=== PATIENT | female | born 1970 | race American Indian/Alaskan Native ===

== ENCOUNTER 2017-12-02 17:34 | Emergency (ER) | payer MEDICAID ==
[2017-12-02 17:41] VITALS: BP 151/89
[2017-12-02 18:14] LABS: Basophils % (Auto) 0.7 % (0.0-1.8); Eosinophils # (Auto) 0.1 K/mm3 (0.0-0.4); Eosinophils % (Auto) 1.9 % (0.0-4.3); Hematocrit 41.2 % (30.3-42.9); Hemoglobin 13.5 gm/dl (10.1-14.3); Lymphocytes # (Auto) 2.6 K/mm3 (1.2-5.4); Lymphocytes % (Auto) 51.1 % (13.4-35.0); Mean Corpuscular HGB Conc 33 % (30-34); Mean Corpuscular Hemoglobin 27 pg (28-32); Mean Corpuscular Volume 83 fl (79-97); Monocytes # (Auto) 0.4 K/mm3 (0.0-0.8); Monocytes % (Auto) 8.1 % (0.0-7.3); Platelet Count 254 K/mm3 (140-440); Red Blood Count 4.97 M/mm3 (3.65-5.03); Red Cell Distribution Width 13.8 % (13.2-15.2)
[2017-12-02 18:23] LABS: INR 0.87 (0.87-1.13)
[2017-12-02 18:24] LABS: Partial Thromboplastin Time 32.2 Sec. (24.2-36.6)
[2017-12-02 18:29] LABS: BUN/Creatinine Ratio 17; Blood Urea Nitrogen 12 mg/dL (7-17); Calcium 9.1 mg/dL (8.4-10.2); Hemolysis Index 4
--- NOTE | 2017-12-02 18:51 | Cat Scan Report ---
FINAL REPORT PROCEDURE: CT HEAD/BRAIN WO CON TECHNIQUE: Computerized tomography of the head was performed without contrast material. HISTORY: NUMBNESS LEFT ARM COMPARISON: No prior studies are available for comparison. FINDINGS: Skull and scalp: Normal. Paranasal sinuses: Normal. Ventricles and subarachnoid spaces: Normal. Cerebrum: No evidence of hemorrhage, acute infarction or mass . Cerebellum and brainstem: No evidence of hemorrhage, acute infarction or mass. Vasculature: Normal. Comments: None. IMPRESSION: Normal Examination
[2017-12-02] MEDS ORDERED: ULTRAM PO ONE (21:02)
--- NOTE | 2017-12-02 21:11 | Emergency Department Report ---
ED Neuro Deficit HPI - General Chief Complaint: Neuro Symptoms/Deficit Stated Complaint: LEFT ARM PAIN Time Seen by Provider: 12/02/17 20:49 Source: patient Mode of arrival: Ambulatory Limitations: No Limitations - History of Present Illness Initial Comments: 47-year-old female no significant past medical history presents to to the hospital complaining of left arm numbness that started hours prior to arrival. Patient complains of left sided neck pain and numbness and paresthesias extending shoulder to hand. Symptoms are constant. Initially rated 6/10 in intensity. Patient took one of her diclofenac 75 mg tablets the pain decreased to 3-4/10 in intensity. Intermittent shooting component to pain. Patient denies weakness or other deficits. Patient denies any recent trauma or injury - Related Data Home Medications: Home Medications Medication Instructions Recorded Confirmed Last Taken Diclofenac [Chelly Beasley] 75 mg PO BID PRN 04/21/15 04/21/15 04/19/15 21:00 Previous Rx's Medication Instructions Recorded Last Taken Type Acetaminophen/Codeine [Tylenol #3] 1 tab PO Q8H PRN #12 tablet 04/21/15 Unknown Rx Ciprofloxacin HCl [Ciprofloxacin 500 mg PO BID #20 tablet 04/21/15 Unknown Rx TAB] Promethazine [Phenergan TAB] 25 mg PO Q8H PRN #15 tablet 04/21/15 Unknown Rx Metaxalone [Skelaxin] 800 mg PO TID PRN #30 tablet 12/02/17 Unknown Rx Omeprazole 20 mg PO DAILY #7 tablet. 12/02/17 Unknown Rx Prednisone [predniSONE 10 mg 10 mg PO .TAPER #1 tab.ds.pk 12/02/17 Unknown Rx (6-Day Pack, 21 Tabs)] traMADol [Ultram 50 MG tab] 50 mg PO Q6HR PRN #20 tablet 12/02/17 Unknown Rx Allergies/Adverse Reactions: Allergies Allergy/AdvReac Type Severity Reaction Status Date / Time No Known Allergies Allergy Verified 04/21/15 14:54 ED Review of Systems ROS: Stated complaint: LEFT ARM PAIN Other details as noted in HPI Comment: All other systems reviewed and negative ED Past Medical Hx - Past Medical History Previous Medical History?: No - Surgical History Additional Surgical History: LEFT LOWER LEG SURGERY - Social History Smoking Status: Never Smoker Substance Use Type: Alcohol - Medications Home Medications: Home Medications Medication Instructions Recorded Confirmed Last Taken Type Acetaminophen/Codeine [Tylenol #3] 1 tab PO Q8H PRN #12 tablet 04/21/15 Unknown Rx Ciprofloxacin HCl [Ciprofloxacin 500 mg PO BID #20 tablet 04/21/15 Unknown Rx TAB] Diclofenac [Chelly Beasley] 75 mg PO BID PRN 04/21/15 04/21/15 04/19/15 21:00 History Promethazine [Phenergan TAB] 25 mg PO Q8H PRN #15 tablet 04/21/15 Unknown Rx Metaxalone [Skelaxin] 800 mg PO TID PRN #30 tablet 12/02/17 Unknown Rx Omeprazole 20 mg PO DAILY #7 tablet.dr 12/02/17 Unknown Rx Prednisone [predniSONE 10 mg 10 mg PO .TAPER #1 tab.ds.pk 12/02/17 Unknown Rx (6-Day Pack, 21 Tabs)] traMADol [Ultram 50 MG tab] 50 mg PO Q6HR PRN #20 tablet 12/02/17 Unknown Rx ED Neuro Physical Exam - General Limitations: No Limitations Suspected Stroke: No - NIHSS Assessment Interval: Baseline 1a. Level of Consciousness: alert 1b. LOC Questions: answers no questions correctly 1c. LOC Commands: performs tasks correctly 2. Best Gaze: normal 3. Visual: no visual loss 4. Facial Palsy: normal symmetrical movement 5b. Motor Arm Right: no drift 5a. Motor Arm Left: no drift 6a. Motor Leg Left: no drift 6b. Motor Leg Right: no drift 7. Limb Ataxia: absent 8. Sensory: mild/moderate sensory loss (left arm) 9. Best Language: no aphasia 10. Dysarthria: normal 11. Extinction/Inattention: no abnormality Total Score: 3 Stroke Severity: Minor Stroke - Other Other exam information: General: No limitations, patient is alert in no acute distress Head exam: Atraumatic, normocephalic Eyes exam: Normal appearance, pupils equal reactive to light, extraocular movements intact ENT: Moist mucous membrane, normal oropharynx Neck exam: Normal inspection, full range of motion, no meningismus nontender Respiratory exam: Clear to auscultation bilateral, no wheezes, rales, crackles Cardiovascular: Normal rate and rhythm, normal heart sounds Abdomen: Soft, nondistended, and nontender, with normal bowel sounds, no rebound, or guarding Extremity: Full range of motion normal inspection no deformity Back: Normal Inspection, full range of motion, no tenderness Neurologic: Alert, oriented x3, cranial nerves intact, decreased sensation to pinprick to the ulnar side of the forearm and upper arm and hand. Equal hand sheep killer and no drift to arms or legs. See NIH stroke scale Psychiatric: normal affect, normal mood Skin: Warm, dry, intact ED Course Vital Signs 12/02/17 17:38 Temperature 97.8 F Pulse Rate 78 Respiratory 20 Rate Blood Pressure 151/89 O2 Sat by Pulse 100 Oximetry - Reevaluation(s) Reevaluation #1: 12/02/17 21:11 Tramadol given for pain - Lab Data Result diagrams: 12/02/17 17:50 12/02/17 17:50 Lab Results 12/02/17 12/02/17 12/02/17 Range/Units 17:50 17:50 17:50 WBC 5.1 (4.5-11.0) K/mm3 RBC 4.97 (3.65-5.03) M/mm3 Hgb 13.5 (10.1-14.3) gm/dl Hct 41.2 (30.3-42.9) % MCV 83 (79-97) fl MCH 27 L (28-32) pg MCHC 33 (30-34) % RDW 13.8 (13.2-15.2) % Plt Count 254 (140-440) K/mm3 Lymph % (Auto) 51.1 H (13.4-35.0) % [place] % (Auto) 8.1 H (0.0-7.3) % Eos % (Auto) 1.9 (0.0-4.3) % Baso % (Auto) 0.7 (0.0-1.8) % Lymph # 2.6 (1.2-5.4) K/mm3 [place] # 0.4 (0.0-0.8) K/mm3 Eos # 0.1 (0.0-0.4) K/mm3 Baso # 0.0 (0.0-0.1) K/mm3 Seg Neutrophils % 38.2 L (40.0-70.0) % Seg Neutrophils # 1.9 (1.8-7.7) K/mm3 PT 12.3 (12.2-14.9) Sec. INR 0.87 (0.87-1.13) APTT 32.2 (24.2-36.6) Sec. Sodium 139 (137-145) mmol/L Potassium 4.1 (3.6-5.0) mmol/L Chloride 100.2 (98-107) mmol/L Carbon Dioxide 28 (22-30) mmol/L Anion Gap 15 mmol/L BUN 12 (7-17) mg/dL Creatinine 0.7 (0.7-1.2) mg/dL Estimated GFR > 60 ml/min BUN/Creatinine Ratio 17 % Glucose 97 (65-100) mg/dL POC Glucose (70-105) Calcium 9.1 (8.4-10.2) mg/dL Troponin T < 0.010 (0.00-0.029) ng/mL HCG, Qual (Negative) 12/02/17 12/02/17 Range/Units 17:50 17:57 WBC (4.5-11.0) K/mm3 RBC (3.65-5.03) M/mm3 Hgb (10.1-14.3) gm/dl Hct (30.3-42.9) % MCV (79-97) fl MCH (28-32) pg MCHC (30-34) % RDW (13.2-15.2) % Plt Count (140-440) K/mm3 Lymph % (Auto) (13.4-35.0) % [place] % (Auto) (0.0-7.3) % Eos % (Auto) (0.0-4.3) % Baso % (Auto) (0.0-1.8) % Lymph # (1.2-5.4) K/mm3 [place] # (0.0-0.8) K/mm3 Eos # (0.0-0.4) K/mm3 Baso # (0.0-0.1) K/mm3 Seg Neutrophils % (40.0-70.0) % Seg Neutrophils # (1.8-7.7) K/mm3 PT (12.2-14.9) Sec. INR (0.87-1.13) APTT (24.2-36.6) Sec. Sodium (137-145) mmol/L Potassium (3.6-5.0) mmol/L Chloride (98-107) mmol/L Carbon Dioxide (22-30) mmol/L Anion Gap mmol/L BUN (7-17) mg/dL Creatinine (0.7-1.2) mg/dL Estimated GFR ml/min BUN/Creatinine Ratio % Glucose (65-100) mg/dL POC Glucose 80 (70-105) Calcium (8.4-10.2) mg/dL Troponin T (0.00-0.029) ng/mL HCG, Qual Negative (Negative) - EKG Data -: EKG Interpreted by Me EKG shows normal: sinus rhythm, axis (qrs 54), QRS complexes (81), ST-T waves ( no stemi/t inv) Rate: normal - Radiology Data Radiology results: report reviewed CT head: No acute findings - Medical Decision Making Symptoms suggestive of radiculopathy and ulnar distribution of the arm and hand. CT head unremarkable patient does not have any stroke symptoms. Patient encouraged to continue diclofenac with the addition of tramadol. She can follow -up with her primary care doctor this week to determine if Neurontin or Lyrica are necessary and for further workup. Patient placed on PPI for 7 days while on prednisone and diclofenac for NSAID ulcer induced prophylaxis - Differential Diagnosis radiculopathy, CVA, [place], paresthesias Critical Care Time: No Critical care attestation.: If time is entered above; I have spent that time in minutes in the direct care of this critically ill patient, excluding procedure time. ED Disposition Clinical Impression: Cervical radiculopathy Disposition: - TO HOME OR SELFCARE Is pt being admited?: No Does the pt Need Aspirin: No Condition: Stable Instructions: Cervical Radiculopathy (ED) Additional Instructions: Continue your diclofenac in addition to the other prescribed medication for the symptoms. Follow-up with your doctor this week for further workup and evaluation. Return if symptoms worsen Prescriptions: Metaxalone [Skelaxin] 800 mg PO TID PRN #30 tablet PRN Reason: Muscle Spasm Omeprazole 20 mg PO DAILY #7 tablet.dr Prednisone [predniSONE 10 mg (6-Day Pack, 21 Tabs)] 10 mg PO .TAPER #1 tab.ds.pk traMADol [Ultram 50 MG tab] 50 mg PO Q6HR PRN #20 tablet PRN Reason: Pain Referrals: ABBY KNOWLES MD [Primary Care Provider] - 3-5 Days Time of Disposition: 21:22
[2017-12-02] MEDS ORDERED: DELTASONE PO ONE (21:24)
[2017-12-02 21:27] LABS: Thrombin Time 15.3 Sec. (15.1-19.6)
== END 2017-12-02 21:41 | disposition home or self-care (01) ==
LOC: ED 17:34
DX: M54.12 Radiculopathy, cervical region (principal)
CPT/HCPCS: 36415; 70450; 80048; 82962; 84484; 84703; 85025; 85610; 85670; 85730; 93005; 93010; 99284; J7512